=== PATIENT | female | born 1990 | race Caucasian/White ===

== ENCOUNTER 2016-10-08 20:08 | Emergency (ER) | payer BC, OTHER ==
--- NOTE | 2016-10-08 20:50 | ER Document Report ---
ED Medical Screen (RME) - General Stated Complaint: DIFFICULTY BREATHING Time seen by provider: 20:47 Mode of Arrival: Ambulatory Information source: Patient Notes: 26-year-old female presents to ED for difficulty breathing states she blacked out first time while driving and second time after exercising. Second time she fell and hurt her shoulder. She states she blacked out once or twice every couple months for the last 2 years. She states she usually knows when she's got black out and can sit down before hand when running she did not know it had a time. Last menstrual period 10/05/2016. I have greeted and performed a rapid initial assessment of this patient. A comprehensive ED assessment and evaluation of the patient, analysis of test results and completion of medical decision making process will be conducted by an additional ED providers. - Related Data Allergies/Adverse Reactions: Sulfa (Sulfonamide Antibiotics) Allergy (Intermediate, Verified 06/11/11 08:27) rash Past Medical History - Past Medical History Cardiac Medical History: Denies: Hx Coronary Artery Disease, Hx Heart Attack, Hx Hypertension Pulmonary Medical History: Denies: Hx Asthma, Hx Bronchitis, Hx COPD, Hx Pneumonia Neurological Medical History: Denies: Hx Cerebrovascular Accident, Hx Seizures Musculoskeltal Medical History: Denies Hx Arthritis Past Surgical History: Reports: Hx Appendectomy - 2005. Denies: Hx Hysterectomy , Hx Pacemaker - Immunizations Hx Diphtheria, Pertussis, Tetanus Vaccination: Yes Physical Exam - Vital signs Vitals: Temp Pulse Resp BP Pulse Ox 97.9 F 64 16 113/59 L 100 10/08/16 20:41 10/08/16 20:41 10/08/16 20:41 10/08/16 20:41 10/08/16 20:41 Course - Vital Signs Vital signs: Temp Pulse Resp BP Pulse Ox 97.9 F 64 16 113/59 L 100 10/08/16 20:41 10/08/16 20:41 10/08/16 20:41 10/08/16 20:41 10/08/16 20:41
[2016-10-08] MEDS ORDERED: ACETAMINOPHEN 325 MG TABLET PO ONE (20:51)
[2016-10-08] MEDS ORDERED: ASPIRIN 81 MG TABLET, CHEWABLE PO ONE (20:53)
[2016-10-08 21:20] LABS: ABSOLUTE BASOPHILS # (AUTO) 0.1 10^3/uL (0.0-0.2); ABSOLUTE EOSINOPHILS # (AUTO) 0.1 10^3/uL (0.0-0.6); ABSOLUTE LYMPHOCYTES (AUTO) 2.8 10^3/uL (0.5-4.7); ABSOLUTE MONOCYTES (AUTO) 0.4 10^3/uL (0.1-1.4); ABSOLUTE NEUT (AUTO) 2.1 10^3/uL (1.7-8.2); EOSINOPHILS % (AUTO) 2.4 % (0-6); HEMATOCRIT 37.2 % (36.0-47.0); HEMOGLOBIN 12.6 g/dL (12.0-15.5); HGB HCT DIFFERENCE 0.6; LYMPHOCYTES % (AUTO) 51.1 % (13-45); MEAN CORPUSCULAR HEMOGLOBIN 30.6 pg (27.0-33.4); MEAN CORPUSCULAR HGB CONC 33.9 g/dL (32.0-36.0); MEAN CORPUSCULAR VOLUME 90 fl (80-97); MONOCYTES % (AUTO) 7.4 % (3-13); RED BLOOD COUNT 4.12 10^6/uL (3.72-5.28); RED CELL DISTRIBUTION WIDTH 12.5 % (11.5-14.0); SEGMENTED NEUTROPHILS % (AUTO) 38.1 % (42-78); WHITE BLOOD COUNT 5.4 10^3/uL (4.0-10.5)
[2016-10-08 21:24] LABS: APPEARANCE,URINE SLIGHTLY-CLOUDY; BILIRUBIN,URINE NEGATIVE (NEGATIVE); GLUCOSE, URINE NEGATIVE (NEGATIVE); KETONES,URINE NEGATIVE (NEGATIVE); LEUKOCYTE ESTERASE,URINE MODERATE (NEGATIVE); NITRITE,URINE NEGATIVE (NEGATIVE); PROTEIN,URINE 100 mg/dL (NEGATIVE); URINE SPECIFIC GRAVITY 1.023; UROBILINOGEN,URINE NEGATIVE mg/dL (<2.0)
[2016-10-08 21:41] LABS: ALANINE AMINOTRANSFERASE 25 U/L (9-52); ALKALINE PHOSPHATASE 64 U/L (38-126); ANION GAP 9 (5-19); ASPARTATE AMINO TRANSFERASE 20 U/L (14-36); BILIRUBIN,TOTAL 0.3 mg/dL (0.2-1.3); BLOOD UREA NITROGEN 10 mg/dL (7-20); CALCIUM 9.4 mg/dL (8.4-10.2); CARBON DIOXIDE 27 mmol/L (22-30); CHLORIDE 106 mmol/L (98-107); CREATINE KINASE 29 U/L (30-135); CREATININE RESULT 0.79 mg/dL (0.52-1.25); GLUCOSE 96 mg/dL (75-110); POTASSIUM 3.7 mmol/L (3.6-5.0); SODIUM 142.1 mmol/L (137-145); TOTAL PROTEIN 6.9 g/dL (6.3-8.2)
[2016-10-08 21:53] LABS: CREATINE KINASE MB < 0.22 ng/mL (<4.55); TROPONIN I < 0.012 ng/mL
[2016-10-08] MEDS ORDERED: ASPIRIN 81 MG TABLET, CHEWABLE ONE (22:07)
--- NOTE | 2016-10-09 03:16 | ER Document Report ---
ED General - General Chief Complaint: Syncope Stated Complaint: DIFFICULTY BREATHING Mode of Arrival: Ambulatory Notes: Patient is a 26 year female presents with complaints of a simple episode. Patient says that she was jogging and passed out Shaina and her shoulder. Since passing out she's had pain in the right shoulder. Patient says she has a history of recurrent syncopal episodes. She says that she has had many throughout her lifetime. She denies any chest pain or headache or shortness of breath just prior to syncopal episode. Patient says that she has had some chest pain. 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 Her coworker likely the patient and she was still holding onto the patient. This pulled her forward and pulled on her chest. Since then she's had soreness on the left side of the chest. She did not have any soreness prior to this episode. The soreness in her chest started immediately when the episode at work occurred. No leg pain or leg swelling. No history of DVT or PE. No tachypnea. No tachycardia. No other complaints at this time. TRAVEL OUTSIDE OF THE [place] IN LAST 30 DAYS: No - Related Data Allergies/Adverse Reactions: Sulfa (Sulfonamide Antibiotics) Allergy (Intermediate, Verified 06/11/11 08:27) rash Past Medical History - General Information source: Patient - Social History Smoking Status: Never Smoker Chew tobacco use (# tins/day): No Frequency of alcohol use: None Drug Abuse: None Family History: Reviewed & Not Pertinent Patient has suicidal ideation: No Patient has homicidal ideation: No - Past Medical History Cardiac Medical History: Denies: Hx Coronary Artery Disease, Hx Heart Attack, Hx Hypertension Pulmonary Medical History: Denies: Hx Asthma, Hx Bronchitis, Hx COPD, Hx Pneumonia Neurological Medical History: Denies: Hx Cerebrovascular Accident, Hx Seizures Renal/ Medical History: Denies: Hx Peritoneal Dialysis Musculoskeltal Medical History: Denies Hx Arthritis Past Surgical History: Reports: Hx Appendectomy - 2005. Denies: Hx Hysterectomy , Hx Pacemaker - Immunizations Hx Diphtheria, Pertussis, Tetanus Vaccination: Yes Review of Systems - Review of Systems Notes: My Normal Review Basic REVIEW OF SYSTEMS: CONSTITUTIONAL : Denies fever, chills, or sweats. Denies recent illness. EENT: Denies eye, ear, throat, or mouth pain or symptoms. Denies nasal or sinus congestion. CARDIOVASCULAR: Some chest pain RESPIRATORY: Denies cough, cold, or chest congestion. Denies shortness of breath, difficulty breathing, or wheezing. GASTROINTESTINAL: Denies abdominal pain. Denies nausea, vomiting, or diarrhea. Denies constipation. Last BM: GENITOURINARY: Denies difficulty urinating, painful urination, burning, frequency, or blood in urine. MUSCULOSKELETAL: Denies neck or back pain or joint pain or swelling. SKIN: Denies rash or skin lesions. NEUROLOGICAL: Single episode ALL OTHER SYSTEMS REVIEWED AND NEGATIVE. Physical Exam - Vital signs Vitals: Temp Pulse Resp BP Pulse Ox 97.9 F 64 16 113/59 L 100 10/08/16 20:41 10/08/16 20:41 10/08/16 20:41 10/08/16 20:41 10/08/16 20:41 - Notes Notes: General Appearance: Well nourished, alert, cooperative, no acute distress, no obvious discomfort. Well-appearing. Vitals: reviewed, See vital signs table. Head: no swelling or tenderness to the head Eyes: PERRL, EOMI, Conjuctiva clear Mouth: No decreasd moisture Throat: No tonsillar inflammation, No airway obstruction, No lymphadenopathy Neck: Supple, no neck tenderness, No thyromegaly Lungs: No wheezing, No rales, No rhonci, No accessory muscle use, good air exchange bilaterally. Heart: Normal rate, Regular rythm, No murmur, no rub Chest wall: has area of tenderness over the left chest wall. She is to pinpoint areas just parasternal. They're both easily reproducible with palpation and very tender to touch. Patient says the pain created with my palpation is the same pain she's been having. Abdomen: Normal BS, soft, No rigidity, No abdominal tenderness, No guarding, no rebound, no abdominal masses, no organomegaly Extremities: strength 5/5 in all extremities, good pulses in all extremities, no swelling or tenderness in the extremities with exception of some pain to palpation of the anterior superior right shoulder. She also has pain with movement of the right shoulder., no edema. Skin: warm, dry, appropriate color, no rash Neuro: speech clear, oriented x 3, normal affect, responds appropriately to questions. Cranial nerves II through XII are intact. Distal sensation intact. Patient moves all extremities without difficulty. Course - Vital Signs Vital signs: Temp Pulse Resp BP Pulse Ox 97.9 F 64 16 113/59 L 100 10/08/16 20:41 10/08/16 20:41 10/08/16 20:41 10/08/16 20:41 10/08/16 20:41 - Laboratory Result Diagrams: 10/08/16 21:00 10/08/16 21:00 Laboratory results interpreted by me: 10/08/16 10/08/16 10/08/16 21:00 21:00 21:05 Seg Neutrophils % 38.1 L Lymphocytes % 51.1 H Creatine Kinase 29 L Urine Protein 100 H Urine Blood MODERATE H Ur Leukocyte Esterase MODERATE H - Transfer of Care Notes: 10/09/16 03:21 Patient is feeling much improved. I feel the patient is safe to be discharged home. Patient's pain in her chest is low pleuritic by do not suspect PE. I suspect that the pain is muscle skeletal related to the incident that she had at work where she was holding onto a patient that fell. Her pain is very easily reproducible palpation. She has no tachycardia, tachypnea, or hypoxemia. The exact cause of patient's syncopal episode is unclear. She's had multiple syncopal episodes throughout her life and they are not atypical for her. She says only thing different about the syncopal episodes that she did not have the prodrome of dizziness before passing out. At this time I feel she is safe to be discharged home. I encourage her return to ER immediately if she has worsening chest pain, difficulty breathing, recurrent syncopal episodes , or she feels unwell. I will place her on light duty due to the injury to her right shoulder. Patient agrees with plan will be discharged home. Dictation of this chart was performed using voice recognition software; therefore, there may be some unintended grammatical errors. Discharge - Discharge Clinical Impression: Syncope Qualifiers: Syncope type: unspecified Qualified Code(s): R55 - Syncope and collapse Chest pain Qualifiers: Chest pain type: unspecified Qualified Code(s): R07.9 - Chest pain, unspecified Condition: Good Disposition: HOME, SELF-CARE Instructions: Family Physicians / Practices Additional Instructions: SYNCOPAL EPISODE: Syncope (fainting or near-fainting) can occur from many different health problems. Or it can be a simple fainting spell requiring no treatment. It is safe for you to go home, but further evaluation will likely be necessary. Your work-up may include tests for internal bleeding, heart disease, medication problems, or near-strokes. Tests are not always required, however, depending on the nature of your problem. The warning signs of an impending faint include: dizziness, lightheadedness , nausea, hot flashes, tingling, and weakness. If this happens, lay down and put your feet up, then wait until all of these symptoms have passed before standing up again. If these episodes become recurrent, or if you develop chest pain, heart palpitations, mental confusion, blurred vision, or headache, then you should call the physician, or go to the emergency room. NORMAL EXAM AND WORKUP: At this time, your examination and workup show no significant abnormality. No significant abnormal physical findings were noted. All laboratory, EKG, and imaging (x-ray) studies that were ordered show no significant abnormality. Although your examination and all studies that were ordered showed no significant abnormal finding, there are no examinations and no studies that are 100% accurate. There is always the possibility that some abnormality could exist and not be detected with physical examination or within the limits and capabilities of laboratory and other studies. You should return or follow up as you were instructed on your visit today for further evaluation if your symptoms do not resolve. FOLLOW-UP CARE: If you have been referred to a physician for follow-up care, call the physician s office for an appointment as you were instructed or within the next two days. If you experience worsening or a significant change in your symptoms, notify the physician immediately or return to the Emergency Department at any time for re-evaluation. Please rest at home. Please follow-up with a primary care doctor for reevaluation due to your history of recurrent syncopal episodes. Please to not do any heavy lifting for the next week due to your shoulder pain. If you continue to have shoulder pain after one week please follow-up with a physician for reevaluation. Please return to ER if you have recurrent syncopal episodes, worsening chest pain, change in location of your pain, or feel unwell. Forms: Special Work Note, Return to Work
[2016-10-09 06:57] VITALS: BP 116/80
--- NOTE | 2016-10-09 08:19 | EKG REPORT ---
SEVERITY:- NORMAL ECG - SINUS RHYTHM : Confirmed by: Odessa Quach MD 09-Oct-2016 08:18:30
== END 2016-10-09 03:27 | disposition home or self-care (01) ==
LOC: ER 20:08
DX: R55 Syncope and collapse (principal); R07.9 Chest pain, unspecified; M25.511 Pain in right shoulder; Z88.2 Allergy status to sulfonamides
CPT/HCPCS: 36415; 71020; 80053; 81001; 82550; 82553; 84484; 84703; 85025; 93005; 93010; 99284